=== PATIENT | male | born 1985 | race African-American/Black ===

== ENCOUNTER 2022-11-02 11:11 | Emergency (ER) | payer OTHER, BC, SELFPAY ==
--- NOTE | ~2022-11-02 | XR_ITS ---
XR knee RT min 4V 11/02/2022 12:14 Indication: Right knee pain Procedure: 4 views right knee Comparison: No prior studies for comparison. Findings: There is anatomic alignment. No fracture, subluxation or dislocation. No significant joint effusion. No foreign bodies. Impression: 1: No acute bone or joint abnormality. Reviewed, dictated and finalized at location B. Impression: 1: No acute bone or joint abnormality.
--- NOTE | 2022-11-02 11:16 | ED.LOWEXIN ---
HPI - Extremity Injury (Lower) General Chief Complaint: Extremity Injury, Lower Stated Complaint: Pain in knee Time Seen by Provider: 11/02/22 11:15 Source: patient Mode of arrival: ambulatory Limitations: no limitations History of Present Illness HPI Narrative: Mr. Hoyt is a 37-year-old male patient presenting to clinic today with complaints of pain in his right knee x1 day. 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 Reports pain to the anterior knee and it is radiating around the knee. Currently rates his pain /10. Pain is worse with ambulation/bearing weight and range of motion Related Data Allergies Allergy/AdvReac Type Severity Reaction Status Date / Time No Known Allergies Allergy Verified 11/02/22 11:50 Review of Systems Review of Systems: Pertinent positives per HPI. Patient denies any fever, chills, rash, headache, visual changes, dizziness, cough, runny nose, sore throat, shortness of breath, chest pain, palpitations, nausea, vomiting, diarrhea, constipation, abdominal pain, or any urinary issues. PMFSH Comments At the time of my signature, I reviewed and agree with the nursing past medical, surgical, social, and family history. There is no relevant family history pertinent to the patient complaint. Exam Narrative: General: Well-developed, well nourished, in no apparent distress Head: Normocephalic, atraumatic. Cardio: Regular rate and rhythm, s1 and s2 normal, no murmur appreciated. Resp: Clear to auscultation bilaterally, no rhonchi, rales, wheezing or rubs. Musculoskeletal: No deformity, tender to palpation over the anterior knee radiating across the lateral and medial knee into the posterior knee, some discomfort with flexion and extension of the knee, no Minaya's cyst palpable to the posterior knee, grossly normal range of motion, muscle strength strong and equal, peripheral pulse strong, no edema, no cyanosis, normal gait and station Course Course Emergency Course: Portions of this record may have been created with voice recognition software. Level of Care: Express Care Visit Vital Signs Vital signs: Vital Signs Temperature 36.8 C 11/02/22 11:30 Pulse Rate 78 11/02/22 11:30 Respiratory Rate 16 11/02/22 11:30 Blood Pressure 139/76 11/02/22 11:30 Pulse Oximetry 100 11/02/22 11:30 Oxygen Delivery Room Air 11/02/22 11:30 Temperature 36.8 C 11/02/22 11:30 Pulse Rate 78 11/02/22 11:30 Respiratory Rate 16 11/02/22 11:30 Blood Pressure 139/76 11/02/22 11:30 Pulse Oximetry 100 11/02/22 11:30 Oxygen Delivery Room Air 11/02/22 11:30 Vital signs reviewed MDM - Extremity Injury (Lower) MDM Narrative Medical decision making narrative: At the time of visit patient is resting comfortably on exam table. X-ray was performed of the right knee and was negative for any sign of fracture, malalignment, or effusion. I suspect patient has knee strain/sprain versus patellofemoral syndrome. Recommend rest, ice, elevation, and compression. Will give him a work note for 3 days. Supportive measures were discussed with the patient he voiced understanding discharge instructions agrees to treatment plan. Differential Diagnosis Differential diagnosis: Likely acute internal derangement of knee and other (Knee strain,) Imaging Data Radiologist's impression: [place] [address] XRay Report Signed Patient: Mauricio Hoty Jr. : 1985 MR#: [id number] Age/Sex: 37 / M Acct:[id number] Loc: [facility]? ? ADM Date: 11/02/22Attending Dr: Ordering Physician: Toby Watkins APRN Date of Service: 11/02/22 Procedure(s): XR knee RT min 4V Accession Number(s): [id number] cc: Toby Watkins APRN; [employer]~ XR knee RT min 4V 11/02/2022 12:14 Indication: Right knee pain Procedure: 4 views right knee
[2022-11-02 11:30] VITALS: BP 139/76; PULSE 78; RESP 16; TEMP 36.8; O2SAT 100
== END 2022-11-02 12:30 | disposition home or self-care (01) ==
PROVIDERS: Emergency Provider Nurse Practitioner Family
DX: M25.561 Pain in right knee (principal)
CPT/HCPCS: 73564; 99203; G0463